=== PATIENT | female | born 2000 | race Caucasian/White ===

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

== ENCOUNTER → 2023-11-03 | Outpatient (CLI) | payer BC ==
--- NOTE | 2023-12-15 15:32 | US ---
Site ID [facility] Patient Chelsea Gandhi E ID 2000 Age/Gender: 23Y, F Order # N/A Procedure US RENALS AND BLADDER Date 11/03/2023 1:35:00 PM EXAMINATION TYPE: US renals and bladder DATE OF EXAM: 11/21/2023 COMPARISON: NONE CLINICAL INDICATION: Female, 23 year old with history of recurrent UTIs for 4 months. EXAM MEASUREMENTS: Right Kidney: 10.9 x 4.4 x 4.9 cm Left Kidney: 11.6 x 4.6 x 4.6 cm Right Kidney: Prominent renal pelvis. Left Kidney: Cystic area seen in the inferior pole measuring 0.9 cm. Prominent renal pelvis. Bladder: Layering debris seen in the bladder. Bilateral Jets seen: No There is no evidence for hydronephrosis at this point in time. Mildly prominent bilateral renal pelvi ses. No nephrolithiasis is seen. 0.9 cm thin-walled cyst within the inferior pole of the left kidney. Thin walled urinary bladder with layering debris demonstrated. Bilateral ureteral jets are not seen. IMPRESSION: 1. No hydronephrosis. 2. Subcentimeter left renal cyst. 3. Nonspecific layering debris within urinary bladder. Correlate with urinalysis for cystitis.
== END | disposition home or self-care (01) ==
LOC: RADUSWWP 12:00
PROVIDERS: ATTEND Family Medicine
DX: N39.0 Urinary tract infection, site not specified
CPT/HCPCS: 76770